=== PATIENT | male | born 1965 | race Caucasian/White ===

== ENCOUNTER → 2021-04-10 07:06 | Outpatient (REF) | payer MEDICAID, SELFPAY ==
--- NOTE | ~2021-04-10 | NM_ITS ---
Exercise Myocardial perfusion study Indication: CAD to evaluate for myocardial ischemia Technique: The patient was brought in for an exercise perfusion study on 04/10/2021. Patient performed exercise as per Patricio protocol and was injected 39 mCi of sestamibi was given intravenously one target HR was achieved. Images were obtained using the SPECT gamma camera interlaced with the gating device. Images were obtained in supine position. Resting perfusion study was performed on 04/10/2020. Patient was administered 30 mCi of sestamibi intravenously at rest. Images were then obtained in supine position. Images obtained with and without CT attenuation. Total DLP 95 mGy-cm. Images were processed with the software and compared side to side in short axis, horizontal long axis and vertical long axis views. Findings: The stress perfusion study showed nonattenuated images show small area of mildly to moderately the distal anterolateral wall of the LV myocardium. The attenuation corrected images show moderately reduced uptake in the distal anterolateral wall of the LV myocardium.. The gated study shows normal LV systolic function with calculated LVEF of 66%. LV cavity is normal in in size. The gated study shows normal systolic wall thickening and contraction of all segments. There is no transient ischemic dilation. Resting study shows nonattenuated as well as attenuation corrected images show improved uptake in the anterolateral wall... In the distal segment. Gating at rest reveals normal systolic wall motion with ejection fraction at 73.%. The findings are consistent with mild to moderate intensity distal anterolateral wall ischemia in diagonal branch territory. NM/NM lidia perf SPECT rest & str Impression: 1. Distal anterolateral ischemia 2. Gated LVEF is 66% 3. Transient ischemic dilatation not present Stress EKG is typical for ischemia
--- NOTE | 2021-04-10 07:14 | CA_ITS ---
Acquisition Time: 2021-04-10 08:50:52 Total Exercise Time: 00:07:25 Test Indications: Ischemia Evaluation Medications: IMDUR PREDNISONE XANAX BUSPIRONE PLAVIX METOPROLOL Protocol: LOY Max HR: 146 BPM 88% of Pred: 165 BPM Max BP: 166/088 mmHG Max Work Load: 9.3 METS Exercise stress nuclear using Loy protocol total of 7 min 45 sec. METS 9.30 and TAPHR up to 88 %. Pt tolerated well, however c/o Chest pressure at the end of exercise 10/08, however chest pressure went away in recovery. Upsloping ST changes seen inferiorly, laterally and anteriorly. Nuclear images to follow. Normotensive response to exercise. Test reviewed with Dr. Rosas. Referred By: Neto German Overread By: Cristine Brewster NP
== END ==
LOC: HO.CARD 07:06
PROVIDERS: PCP Internal Medicine; Visit Provider Internal Medicine Cardiovascular Disease
DX: I25.10 Atherosclerotic heart disease of native coronary artery without angina pectoris (principal)
CPT/HCPCS: 78452; 93017; A9500